=== PATIENT | male | born 1995 | race Caucasian/White ===

== ENCOUNTER 2020-10-10 13:00 | Outpatient (RCR) | payer OTHER ==
[2020-08-29 15:27] LABS: HEMOGLOBIN 15.4 g/dL (13.3-17.7); MEAN PLATELET VOLUME 9.6 fL (9.0-12.2); WHITE BLOOD COUNT 6.9 10^3/uL (4.3-11.0)
[2020-08-29 15:29] LABS: ALANINE AMINOTRANSFERASE 35 U/L (0-55); ALBUMIN 4.7 GM/DL (3.2-4.5); ALKALINE PHOSPHATASE 79 U/L (40-136); BILIRUBIN,TOTAL 0.6 MG/DL (0.1-1.0); BUN/CREATININE RATIO 18; CALCIUM 9.3 MG/DL (8.5-10.1); CARBON DIOXIDE 25 MMOL/L (21-32); CHLORIDE 107 MMOL/L (98-107); CREATININE SERUM 0.97 MG/DL (0.60-1.30); GFR ESTIMATED > 60; GLUCOSE 100 MG/DL (70-105); SODIUM 142 MMOL/L (135-145); TOTAL PROTEIN 7.6 GM/DL (6.4-8.2)
== END 2020-11-27 | disposition home or self-care (01) ==
LOC: LAB 13:00
PROVIDERS: ATTEND Nurse Practitioner Family
DX: K50.90 Crohn's disease, unspecified, without complications (principal); Z79.899 Other long term (current) drug therapy
CPT/HCPCS: 36415; 80053; 85027; 86141; 87015; 87045; 87046; 87324; 87449; 87899